=== PATIENT | female | born 1940 | race Caucasian/White ===

== ENCOUNTER → 2017-02-04 | Outpatient (CLI) | payer MEDICARE, BC ==
--- NOTE | 2017-02-19 10:11 | RSPPFT ---
DATE OF PROCEDURE: 02/04/17 COMMENTS: VOLUMES DYNAMIC: FVC and FEV1 low normal. STATIC: FRC, RV and TLC normal. FLOWS: FEV1% and FEF 25-75 normal. DIFFUSION: Mildly reduced. FLOW VOLUME LOOP: Terminal airflow obstruction. IMPRESSION: The volumes and flow are essentially normal but there is a mild reduction in diffusion and flattening of the expiratory loop suggesting terminal airflow obstruction. Clinical correlation is required.
== END ==
LOC: HRSP 10:48
PROVIDERS: ATTEND Internal Medicine
DX: R06.02 Shortness of breath (principal); R06.2 Wheezing
CPT/HCPCS: 94060; 94620; 94726; 94729; 95012